=== PATIENT | female | born 2000 | race African-American/Black ===

== ENCOUNTER 2022-07-14 | Emergency (ER) | payer SELFPAY ==
[2022-07-14] MEDS ORDERED: Acetaminophen 500 MG TAB ONE (00:44)
[2022-07-14] MEDS ORDERED: Ondansetron PF 4 MG/2 ML Vial ONE ×2 (00:44→01:20)
[2022-07-14 01:04] LABS: #Monocytes 0.1 10x3/uL (0.0-1.1); #Neutrophils 8.6 10x3/uL (1.5-8.4); %Basophils 0.1 % (0.0-2.0); %Eosinophils 0.1 % (0.0-6.0); %Neutrophils 89.4 % (40.0-75.0); Hemoglobin 11.6 g/dL (12.0-15.5); Mean Corpuscular HGB CONC 34.8 g/dL (32.0-36.0); Mean Corpuscular Hemoglobin 27.4 pg (27.0-33.0); Mean Corpuscular Volume 78.5 fl (81.6-98.3); Mean Platelet Volume 9.7 fl (7.4-10.4); Platelet Count 153 10x3/uL (150-450); RBC Distribution Width 13.6 % (11.5-14.5); Red Blood Cell (RBC) Count 4.24 10x6/uL (3.90-5.03); White Blood Cell (WBC) Count 9.7 10x3/uL (3.5-10.5)
[2022-07-14 01:14] LABS: Bilirubin Neg (Negative); Blood, Urine 250 (Negative); Clarity Cloudy (Clear); Glucose, Urine (Dipstick) Normal (Negative); Ketone, Urine 5 mg/dL (Negative); Leukocyte 500 (Negative); Nitrite Positive (Negative); Protein, Urine (Dipstick) 100 mg/dl (Neg-Trace)
[2022-07-14] MEDS ORDERED: Piperacillin/Tazobactam 3.375 GM VIAL ONE (01:20)
[2022-07-14] MEDS ORDERED: Morphine 4 MG/ML VIAL ONE (01:20)
[2022-07-14 01:22] LABS: ALT (SGPT) 16 U/L (8-55); AST (SGOT) 9 U/L (5-34); Albumin 3.5 g/dL (3.5-5.0); Alkaline Phosphatase 103 U/L (40-110); Anion Gap 16 mmol/L (10-20); BUN (Urea Nitrogen) 7 mg/dL (7.0-18.7); Calc. Creatinine Clearance 0 mL/min (70-130); Calcium 8.8 mg/dL (7.8-10.44); Carbon Dioxide 19 mmol/L (22-29); Chloride 105 mmol/L (98-107); Estimated GFR 130; Globulin 2.9 g/dL (2.4-3.5); Glucose 99 mg/dL (70-105); Lipase 8 U/L (8-78); Magnesium 1.8 mg/dL (1.6-2.6); Protein, Total 6.4 g/dL (6.0-8.3); Sodium 137 mmol/L (136-145)
[2022-07-14 01:31] LABS: Bacteria/HPF 4+ HPF (None Seen); Renal Epithelial 0-3 HPF (None Seen); Squamous Epithelial 21-50 HPF (0-3); WBC/HPF 21-50 HPF (0-3)
[2022-07-14 02:17] LABS: SARS-CoV-2 NAA Rapid Test Not Detected (NotDetected)
== END 2022-07-14 04:53 | disposition home or self-care (01) ==
LOC: CSHERS
DX: O23.42 Unspecified infection of urinary tract in pregnancy, second trimester (principal); N39.0 Urinary tract infection, site not specified; Z3A.19 19 weeks gestation of pregnancy
CPT/HCPCS: 36415; 74181; 80053; 81003; 81015; 83605; 83690; 83735; 85025; 87040; 87077; 87086; 87186; 96361; 96374; 96375; J2270; J2405; J2543